=== PATIENT | female | born 1945 | race Hispanic/Latino ===

== ENCOUNTER 2019-05-04 07:52 | Outpatient (CLI) | payer MEDICARE, OTHER ==
--- NOTE | 2019-05-04 10:21 | Magnetic Resonance Report ---
MRI BRAIN WITHOUT CONTRAST INDICATION / CLINICAL INFORMATION: I63.9 Cerebral infarction, unspecified. Patient symptoms include confusion and unsteady gait. TECHNIQUE: Multiplanar, multisequence MR images of the brain were obtained. COMPARISON: None available. FINDINGS: BRAIN / INTRACRANIAL CONTENTS: No acute ischemia, acute hemorrhage, mass effect, midline shift, or hy drocephalus. There is confluent T2/FLAIR hyperintensity involving the periventricular and deep cereb ral white matter with associated central volume loss and ex vacuo dilation of the ventricular system. Cortical volume appears relatively normal and sulcal and cisternal size appears normal. CRANIOCERVICAL JUNCTION: No significant abnormality. VASCULAR FLOW-VOIDS: No significant abnormality. ORBITS: No significant abnormality of visualized orbits. SINUSES / MASTOIDS: No significant abnormality of visualized sinuses and mastoid air cells. ADDITIONAL FINDINGS: None. IMPRESSION: 1. No acute infarct or other acute intracranial abnormality. 2. Significant confluent central cerebral white matter T2/FLAIR hyperintensity. Statistically, this i s most likely due to severe small vessel ischemic change due to chronic hypertension and/or diabetes. However, the appearance could also be seen in other white matter disease, notably HIV-associated dem entia could produce this appearance. Signer Name: Maxi Castano MD Signed: 05/04/2019 10:17 AM Workstation Name: [id number]
== END 2019-05-04 07:53 | disposition home or self-care (01) ==
LOC: MRI 07:52
PROVIDERS: ATTEND Psychiatry & Neurology Neurology
DX: I63.9 Cerebral infarction, unspecified (principal)
CPT/HCPCS: 70551